=== PATIENT | female | born 1990 | race Hispanic/Latino ===

== ENCOUNTER 2022-03-20 15:15 | Emergency (ER) | payer SELFPAY ==
--- NOTE | 2022-03-20 15:52 | Event Note ---
ED Screening Note Date of service: 03/20/22 Time: 15:49 ED Screening Note: This initial assessment/diagnostic orders/clinical plan/treatment(s) is/are subject to change based on patients health status, clinical progression and re- assessment by fellow clinical providers in the ED. Further treatment and workup at subsequent clinical providers discretion. Patient/guardian urged not to elope from the ED as their condition may be serious if not clinically assessed and managed. Deaf patient with multiple vague complaints of pain including left ear, dental and fibromyalgia pain. Out of pain meds and tylenol not helping. Initial orders include:
--- NOTE | 2022-03-20 19:13 | Emergency Department Report ---
ED ENT HPI - General Chief complaint: Dental/Oral Stated complaint: PAIN BACK /EAR PAIN Time Seen by Provider: 03/20/22 19:01 Source: patient Mode of arrival: Ambulatory Limitations: No Limitations - History of Present Illness Initial comments: Patient presents with multiple vague complaints including pain in her left ear, left dentition and her usual fibromyalgia pain. She is out of her pain medications and ibuprofen l is not helping. She is taking 800 mg 3 times a day. Now she has some heartburn. She just moved here from [place] and has not established with a pain management doctor here yet. She is asking for a refill of her Banks, but I explained to her that we do not refill narcotics here but I could give her 12 tramadol and a referral to a primary care doctor. She is okay with that. - Related Data Previous Rx's Medication Instructions Recorded Last Taken Type Omeprazole 20 mg PO DAILY #30 cap 03/20/22 Unknown Rx Penicillin V Potassium 500 mg PO QID #28 tab 03/20/22 Unknown Rx traMADoL [Ultram 50 MG tab] 50 mg PO Q6HR PRN #12 tablet 03/20/22 Unknown Rx Allergies Allergy/AdvReac Type Severity Reaction Status Date / Time No Known Allergies Allergy Verified 03/20/22 15:56 ED Dental HPI - General Chief complaint: Dental/Oral Stated complaint: PAIN BACK /EAR PAIN Time Seen by Provider: 03/20/22 19:01 Source: patient Mode of arrival: Ambulatory Limitations: No Limitations - Related Data Previous Rx's Medication Instructions Recorded Last Taken Type Omeprazole 20 mg PO DAILY #30 cap 03/20/22 Unknown Rx Penicillin V Potassium 500 mg PO QID #28 tab 03/20/22 Unknown Rx traMADoL [Ultram 50 MG tab] 50 mg PO Q6HR PRN #12 tablet 03/20/22 Unknown Rx Allergies Allergy/AdvReac Type Severity Reaction Status Date / Time No Known Allergies Allergy Verified 03/20/22 15:56 ED Review of Systems ROS: Stated complaint: PAIN BACK /EAR PAIN Other details as noted in HPI Constitutional: denies: chills, fever Eyes: denies: eye pain, eye discharge, vision change ENT: as per HPI Respiratory: denies: cough, shortness of breath Cardiovascular: denies: chest pain, palpitations Endocrine: no symptoms reported Gastrointestinal: denies: abdominal pain, nausea, diarrhea Genitourinary: denies: urgency, dysuria, discharge Musculoskeletal: denies: back pain, joint swelling, arthralgia Skin: denies: rash, lesions Neurological: denies: headache, weakness, paresthesias Psychiatric: denies: anxiety, depression Hematological/Lymphatic: denies: easy bleeding, easy bruising ED Past Medical Hx - Past Medical History Previous Medical History?: Yes Additional medical history: fibromyalgia, deaf - Medications Home Medications: Home Medications Medication Instructions Recorded Confirmed Last Taken Type Omeprazole 20 mg PO DAILY #30 cap 03/20/22 Unknown Rx Penicillin V Potassium 500 mg PO QID #28 tab 03/20/22 Unknown Rx traMADoL [Ultram 50 MG tab] 50 mg PO Q6HR PRN #12 tablet 03/20/22 Unknown Rx ED Physical Exam - General Limitations: No Limitations, Language Barrier (Patient is hearing impaired but is able to communicate via writing easily.) General appearance: alert, in no apparent distress - Head Head exam: Present: atraumatic, normocephalic - Eye Eye exam: Present: normal appearance - ENT ENT exam: Present: mucous membranes moist, other (Left TM erythema with out bulging. It is dull. Right TM normal. Left mandibular first molar has caries at the gumline. Minimal surrounding gingival erythema.) - Neck Neck exam: Present: normal inspection - Respiratory Respiratory exam: Present: normal lung sounds bilaterally. Absent: respiratory distress - Cardiovascular Cardiovascular Exam: Present: regular rate, normal rhythm. Absent: systolic murmur, diastolic murmur, rubs, gallop - GI/Abdominal GI/Abdominal exam: Present: soft, normal bowel sounds - Extremities Exam Extremities exam: Present: normal inspection - Back Exam Back exam: Present: normal inspection - Neurological Exam Neurological exam: Present: alert, oriented X3 - Psychiatric Psychiatric exam: Present: normal affect, normal mood - Skin Skin exam: Present: warm, dry, intact, normal color. Absent: rash ED Course Vital Signs 03/20/22 15:53 Temperature 98.9 F Pulse Rate 65 Respiratory 12 Rate Blood Pressure 123/70 [Left] O2 Sat by Pulse 100 Oximetry - Reevaluation(s) Reevaluation #1: 03/20/22 20:24 Patient was very persistent in requesting that I give her a prescription for something, which I did. Upon discharge she requested a dose here. I informed her that typically I only give a dose here and do not send out with a prescription so I offered her Tylenol here and to fill her prescription. She agreed. ED Medical Decision Making - Medical Decision Making Patient presents with multiple vague complaints including pain in her left ear, left dentition and her usual fibromyalgia pain. She is out of her pain medications and ibuprofen l is not helping. She is taking 800 mg 3 times a day. Now she has some heartburn. She just moved here from [place] and has not established with a pain management doctor here yet. She is asking for a refill of her Banks, but I explained to her that we do not refill narcotics here but I could give her 12 tramadol and a referral to a primary care doctor. She is okay with that. I also recommend that she stop the ibuprofen and I will prescribe omeprazole along with her antibiotics and tramadol. I did search [employer] aware and there was no record here or [place] of controlled substances. Critical care attestation.: If time is entered above; I have spent that time in minutes in the direct care of this critically ill patient, excluding procedure time. ED Disposition Clinical Impression: Pain, dental, Left otitis media Disposition: 01 HOME / SELF CARE / HOMELESS Is pt being admited?: No Condition: Stable Instructions: Otitis Media, Adult, [id number], Diet and Dental Disease Additional Instructions: Tramadol. Penicillin. Omeprazole. Primary care and dental follow-up. Tylenol as needed. Prescriptions: Omeprazole 20 mg PO DAILY #30 cap Penicillin V Potassium 500 mg PO QID #28 tab traMADoL [Ultram 50 MG tab] 50 mg PO Q6HR PRN #12 tablet PRN Reason: Pain Referrals: NGOC ELMORE MD [Staff Physician] - 3-5 Days Time of Disposition: 19:27
[2022-03-20] MEDS ORDERED: ACETAMINOPHEN 325 MG TAB PO ONE (20:22)
[2022-03-20] MEDS ORDERED: MAGNESIUM HYDROXIDE (MOM) ORAL LIQD UDC PO ONE (20:23)
[2022-03-20 20:57] VITALS: BP 132/74
== END 2022-03-20 20:57 | disposition home or self-care (01) ==
LOC: ED 15:15
DX: H92.02 Otalgia, left ear (principal); H66.92 Otitis media, unspecified, left ear; K08.89 Other specified disorders of teeth and supporting structures
CPT/HCPCS: 99282